=== PATIENT | male | born 1935 | race Caucasian/White ===

== ENCOUNTER 2017-10-22 08:00 | Day surgery (SDC) | payer MEDICARE, OTHER ==
[~2017-10-22 08:00] MED LIST: CHONDR SU A NA/HYALUR INTRAOC KIT (SURGICARE) ONE; EPINEPHRINE INJ/PF 1 MG/1 ML AMPULE ONE; KETOROLAC TROMETHAMINE 0.45% 4 DROP/0.4 ML DROPERETTE OS PRN; LIDOCAINE 1% INJ-PF (10 MG/ML) 30 ML SDV ONE
[2017-10-22] MEDS: TROPICAMIDE 1% OPH SOLN 3 ML OS PRN ×3 (08:56→09:16)
[2017-10-22] MEDS: CYCLOPENTOLATE 0.2%/PHENYLEPHRINE 1% OPH SOLN 2 ML OS PRN ×3 (08:56→09:16)
[2017-10-22] MEDS: BESIFLOXACIN HCL 0.6% OPH SUSP 5 ML BOTTLE OS PRN ×3 (08:56→10:04)
[2017-10-22] MEDS: TETRACAINE HCL 0.5% OPH SOLN 2 ML OS PRN ×3 (08:56→09:23)
[2017-10-22] MEDS ORDERED: FENTANYL CITRATE INJ/PF 100 MCG/2 ML AMPUL ONE (09:11)
[2017-10-22] MEDS ORDERED: MIDAZOLAM 2 MG/2 ML INJ ONE (09:11)
[2017-10-22] MEDS ORDERED: PHENYLEPHRINE/KETOROLAC 1%-0.3% 4 ML VIAL ONE (09:29)
--- NOTE | 2017-10-22 15:58 | [facility] OPERATIVE REPORT E ---
[facility] Operative Report NAME: GEMA HEREDIA AGE: 82Y DATE OF SURGERY: 10/22/2017 ROOM: PREOPERATIVE DIAGNOSIS: 1. CATARACT, LEFT EYE. 2. PUPIL MIOSIS OF THE LEFT EYE. POSTOPERATIVE DIAGNOSIS: 1. CATARACT, LEFT EYE. 2. PUPIL MIOSIS OF THE LEFT EYE. OPERATION: Complex cataract extraction requiring toric IOL and use of a Malyugin ring due to poor pupillary dilation. SURGEON: ALIA MCGUIRE M.D. ANESTHESIA: Topical. PROCEDURE: After obtaining appropriate consent, the patient's left eye was prepped and draped in sterile fashion as well as the surgeon in a sterile manner and cataract surgery was started. First a paracentesis blade was used to make a small side-port incision. Viscoelastic was used to inflate the anterior chamber. Next a 2.4 mm incision was made with the paracentesis blade. A continuous capsulorrhexis incision was made using a cystotome and Utrata forceps. Following this hydrodissection was carried out to make the lens fully loose and mobile and it was rotated to 176 degrees. Following this, a mmcclb-ypz-viamrur technique was used to phacoemulsify the lens with a CDE of 1.54. The remaining cortex was removed with irrigation/aspiration. Provisc was instilled into the capsular bag to inflate the bag. A EL05AH0, 19.5 diopter lens was placed. The remaining viscoelastic material was removed with irrigation/aspiration. Following this, a 10-0 nylon suture was used to close the incision and it was found to be watertight. Vigamox was instilled in the eye and a protective shield was placed over the eye. The patient returned to the postoperative recovery in stable condition. Prior to making the capsulorrhexis a Malyugin ring was inserted due to very myotic pupil. This was removed at the end of the case. DICTATING PHYSICIAN: ALIA MCGUIRE M.D. [id number] PHY#: [id number] ID: [id number] JOB#: [id number] ACCT: [id number] cc:ALIA MCGUIRE M.D. >
--- NOTE | 2017-10-22 16:03 | [facility] DISCHARGE SUMMARY E ---
[facility] Discharge Summary NAME: GEMA HEREDIA AGE: 82Y ADMITTED: 10/22/2017 DISCHARGED: 10/22/2017 HOSPITAL COURSE: This is an 82-year-old male who underwent complex cataract extraction with the use of a Malyugin ring due to poor pupillary dilation and insertion of a toric IOL. DIAGNOSES: 1. CATARACT OF THE LEFT EYE. 2. PUPIL MIOSIS OF THE LEFT EYE. The patient underwent surgery because increased glare from headlights making it difficult to drive at night. DISCHARGE INSTRUCTIONS: The patient should be on a regular diet. No bending at his waist, no heavy lifting. He should use Besivance, Ilevro, and Durezol at 3 p.m. and 8 p.m. and sleep with a rigid shield. I will see him for a 1 day postoperative tomorrow. DICTATING PHYSICIAN: ALIA MCGUIRE M.D. [id number] PHY#: [id number] ID: [id number] JOB#: [id number] ACCT: [id number] cc:ALIA MCGUIRE M.D. >
== END 2017-10-22 10:51 | disposition home or self-care (01) ==
LOC: SC 08:00
PROVIDERS: ATTEND Internal Medicine
PROC: 08RK3JZ Replacement of Left Lens with Synthetic Substitute, Percutaneous Approach (ICD-10-PCS; principal; 2017-10-22 09:30)
DX: H25.12 Age-related nuclear cataract, left eye (principal); H57.03 Miosis; E11.9 Type 2 diabetes mellitus without complications; K21.9 Gastro-esophageal reflux disease without esophagitis; G40.909 Epilepsy, unspecified, not intractable, without status epilepticus; I10 Essential (primary) hypertension; Z79.84 Long term (current) use of oral hypoglycemic drugs; Z79.899 Other long term (current) drug therapy; Z79.01 Long term (current) use of anticoagulants
CPT/HCPCS: 66982; 82962; V2787; J2250; J3490 ×2; A9270; J0171; J3010; C9447; 142